=== PATIENT | male | born 1970 | race Caucasian/White ===

== ENCOUNTER 2020-05-21 16:41 | Inpatient (IN) | payer OTHER ==
[~2020-05-21] VITALS: Ht 190.5 cm; Wt 143.8 kg
[2020-05-21] MEDS ORDERED: ZESTORETIC 20-251 EA PO (17:21)
[2020-05-21 17:41] LABS: BASOPHILS ABSOLUTE AUTO 0.05 K/mm3 (0.00-0.23); BASOPHILS PERCENT AUTO 1 % (0-2); EOSINOPHILS ABSOLUTE AUTO 0.03 K/mm3 (0.00-0.68); EOSINOPHILS PERCENT AUTO 0 % (0-6); Hematocrit 49.1 % (37.0-53.0); Hemoglobin 15.9 g/dL (13.5-17.5); IMMATURE GRAN ABSOLUTE AUTO 0.01 K/mm3 (0.00-0.10); IMMATURE GRAN PERCENT AUTO 0 % (0-1); LYMPHOCYTES ABSOLUTE AUTO 2.61 K/mm3 (0.84-5.20); LYMPHOCYTES PERCENT AUTO 28 % (21-46); MONOCYTES ABSOLUTE AUTO 0.71 K/mm3 (0.16-1.47); MONOCYTES PERCENT AUTO 8 % (4-13); Mean Corpuscular HGB 28.9 pg (26.0-34.0); Mean Corpuscular HGB Conc 32.4 g/dL (31.5-36.5); Mean Corpuscular Volume 89 fL (80-100); NEUTROPHILS ABSOLUTE AUTO 6.07 K/mm3 (1.96-9.15); NEUTROPHILS PERCENT AUTO 64 % (41-73); Platelet Count 207 K/mm3 (150-400); RDW Standard Deviation 39.4 fL (35.1-46.3); White Blood Cell Count 9.48 K/mm3 (4.00-11.30)
[2020-05-21 17:45] LABS: Mean Platelet Volume 13.5 fL (9.1-12.4)
[2020-05-21] MEDS ORDERED: NIFE20 (17:53)
[2020-05-21 17:58] LABS: Beta-hydroxybutyrate 7.1 mg/dL (0.2-2.8)
[2020-05-21 18:05] LABS: Source, Urine Clean Catch
[2020-05-21 18:06] LABS: Bilirubin, Total 0.9 mg/dL (0.1-1.0); Bun/Creatinine Ratio 15.5 (12.0-20.0); Calcium, Blood 9.3 mg/dL (8.5-10.1); Creatinine, Blood 1.68 mg/dL (0.60-1.20); Globulin, Blood 3.9 g/dL (2.2-4.0); Potassium, Blood 6.8 mmol/L (3.5-5.5); Total Protein, Blood 7.9 g/dL (6.4-8.2)
[2020-05-21 18:08] LABS: Bilirubin, Urine Neg (Neg); Blood, Urine Neg (Neg); Glucose Qualitative, Urine 4+ (Neg); Ketones, Urine Neg (Neg); Leukocyte Esterase, Urine Neg (Neg); Nitrite, Urine Neg (Neg); Protein, Urine Neg (Neg); Specific Gravity, Urine 1.005 (1.003-1.022); Urobilinogen, Urine NORM (Normal)
[2020-05-21 18:12] LABS: Base Excess Venous 5.2 mmol/L; PCO2 Venous 62.6 mmHg (38-42); pH Blood Venous 7.31 (7.34-7.37)
[2020-05-21 18:16] LABS: Appearance, Urine Clear (Clear); Color, Urine Pale Yellow (P-Yellow)
[2020-05-21 18:24] LABS: Magnesium, Blood 2.8 mg/dL (1.6-2.4); Phosphorus, Blood 4.5 mg/dL (2.5-4.9)
[2020-05-21] MEDS ORDERED: NIFE30ER PO (18:52)
[2020-05-21 20:01] LABS: Glucose, Blood 889 mg/dL (70-99)
[2020-05-21 20:25] LABS: Albumin, Blood 3.8 g/dL (3.4-5.0); Anion Gap 10 mmol/L (6-16); Blood Urea Nitrogen 25 mg/dL (8-24); Bun/Creatinine Ratio 15.5 (12.0-20.0); CO2, Blood 27 mmol/L (21-32); Calcium, Blood 9.2 mg/dL (8.5-10.1); Chloride, Blood 89 mmol/L (98-108); Creatinine, Blood 1.61 mg/dL (0.60-1.20); Glomerular Filtration Rate 49 (60-); Glucose, Blood 845 mg/dL (70-99); Sodium, Blood 126 mmol/L (136-145)
[2020-05-21 20:29] LABS: Potassium, Blood 4.4 mmol/L (3.5-5.5)
[2020-05-21 22:14] LABS: Glucose, Blood 751 mg/dL (70-99)
[2020-05-22 01:52] LABS: Glucose, Blood 606 mg/dL (70-99)
[2020-05-22 04:06] LABS: BASOPHILS ABSOLUTE AUTO 0.05 K/mm3 (0.00-0.23); BASOPHILS PERCENT AUTO 1 % (0-2); EOSINOPHILS ABSOLUTE AUTO 0.17 K/mm3 (0.00-0.68); EOSINOPHILS PERCENT AUTO 2 % (0-6); Hematocrit 45.2 % (37.0-53.0); Hemoglobin 15.1 g/dL (13.5-17.5); IMMATURE GRAN ABSOLUTE AUTO 0.01 K/mm3 (0.00-0.10); IMMATURE GRAN PERCENT AUTO 0 % (0-1); LYMPHOCYTES ABSOLUTE AUTO 4.19 K/mm3 (0.84-5.20); LYMPHOCYTES PERCENT AUTO 46 % (21-46); MONOCYTES PERCENT AUTO 7 % (4-13); Mean Corpuscular HGB 29.4 pg (26.0-34.0); Mean Corpuscular HGB Conc 33.4 g/dL (31.5-36.5); Mean Corpuscular Volume 88 fL (80-100); Mean Platelet Volume 12.9 fL (9.1-12.4); NEUTROPHILS ABSOLUTE AUTO 4.06 K/mm3 (1.96-9.15); NEUTROPHILS PERCENT AUTO 45 % (41-73); Platelet Count 207 K/mm3 (150-400); RDW Coefficient Variation 11.9 % (11.7-14.2); RDW Standard Deviation 38.2 fL (35.1-46.3); Red Blood Cell Count 5.14 M/mm3 (4.30-5.90); White Blood Cell Count 9.08 K/mm3 (4.00-11.30)
[2020-05-22 04:23] LABS: Anion Gap 5 mmol/L (6-16); Blood Urea Nitrogen 21 mg/dL (8-24); Bun/Creatinine Ratio 16.8 (12.0-20.0); CO2, Blood 31 mmol/L (21-32); Calcium, Blood 8.9 mg/dL (8.5-10.1); Chloride, Blood 96 mmol/L (98-108); Creatinine, Blood 1.25 mg/dL (0.60-1.20); Glomerular Filtration Rate >60 (60-); Glucose, Blood 512 mg/dL (70-99); Potassium, Blood 4.3 mmol/L (3.5-5.5); Sodium, Blood 132 mmol/L (136-145)
--- NOTE | 2020-05-22 05:51 | NUR ---
SHIFT SUMMARY PT ADMITTED FROM ER. [facility]. CBG >700. ON FLUID BOLUS ON ADMIT AND JUST HAD RECEIVED 10U IV INSULIN. PT HAS SINCE RECEIVED 10SQ INSULIN Q4 HOURS WITH CONSISTENT DOWNWARD TRENDING OF BLOOD GLUCOSE LEVELS, WITH MOST RECENT BEING 512. PT DRININKING WATER TOLERATED. STATES BLURREY VISION HAS DECREASED BUT IS STILL PRESENT. PT IN SR WITH STABLE VS. WORE CPAP WHILE ASLEEPING FOR MAJORITY OF SHIFT. PT OTHERWISE INDEPENDENT IN ROOM. NPO EXCEPT WATER UNTIL CBG <300. WILL CONTINUE TO MONITOR UNTIUL SHIFT CHANGE.
--- NOTE | 2020-05-22 12:00 | NUR ---
PT STATUS CHANGED TO MEDICAL WITH NO TELE. REPORT GIVEN TO YANET MCGRAW. PT HAS BEEN ALERT AND ORIENTED, INDEPENDENT IN THE ROOM, VITALS HAS BEEN STABLE. LAST CBG WAS 396 PT REMAINS ON LOW SLIDING SCAL OF INSULIN, CBG CHECK SWITCHED TO AC/HS AND DIET RESUMED PER DR MARQUEZ. 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 PT STARTED ON METFORMIN AND GLIPIZIDE ORAL. PT DENIES ANY PAIN/PRESSURE. STILL HAS BLURRED VISION CAN ONLY SEE BLURRY FROM A FAR/CAN READ ATLEAST 1 FT AWAY, NO OTHER ISSUES ENCOUNTERED. PT WAS ACCOMPANIED BY PCT VIA WHEELCHAIR, ALL BELONGINGS SENT WITH PT.
--- NOTE | 2020-05-22 12:40 | NUR ---
PCU TRANSFER- PT ARRIVED TO ROOM 305 VIA W/C FROM PCU 11. PT A/OX4, INDEP UP IN ROOM. PT DENIES ANY COMPLAINTS AT THIS TIME. LS CLEAR, ON RA. BLOOD GLUCOSE 396, INSULIN GIVEN WELL GLIPIZIDE. PT NOTED TO HAVE DIARRHEA, GUAIAC SENT TO LAB PER ORDERS. PT ORIENTED TO ROOM AND CALL SYSTEM, CALL LIGHT IN REACH.
[2020-05-22 13:49] LABS: Stool Occult Blood Guaiac 1 Neg (Neg)
--- NOTE | 2020-05-22 15:12 | NUR ---
PERMISSION FOR CARE PT GAVE THIS STUDENT NURSE, ARABELLA MARTINEZ, PERMISSION TO ASSIST NURSE WITH CARE ON 05/23/2020
--- NOTE | 2020-05-22 17:06 | NUR ---
SHIFT SUMMARY- PT PCU TRANSFER THIS AFTERNOON. PT A/OX4, INDEP UP IN ROOM. PT DENIES ANY PAIN. LS CLEAR, ON RA. PT NOTED TO HAVE DIARRHEA, STOOL SENT, GUAIAC NEGATIVE. PT REPORTS CONTINUES TO HAVE DIFFICULTY WITH VISION. BLOOD GLUCOSE REMAINS IN THE HIGH 300'S TODAY. NO OTHER ACUTE CHANGES THIS SHIFT.
--- NOTE | 2020-05-22 17:33 | NUR ---
BLOOD GLUCOSE NOTED TO 409 AT DINNER, PER SLIDING SCALE THIS IS 10 UNITS RAJESH, SPOKE WITH DR MARQUEZ WHO HAS ORDERED AN ADDITIONAL 5 UNITS FOR A TOTAL OF 15 UNITS TO BE GIVEN.
--- NOTE | 2020-05-23 04:33 | NUR ---
SHIFT SUMMARY PT REMAINS HYPERGLYCEMIC, PT STATES THAT HE WOULD PREFER TO NOT HAVE TO TAKE INSULIN. CBG 412 AT HS, 10 UNITS NOVOLOG GIVEN. RECHECK 341. ENCOURAGED PT TO DRINK LOTS OF WATER. PT DIAPHORETIC THROUGHOUT THE NIGHT. PT STATES THAT HIS VISION HAS IMPROVED BUT IS STILL QUITE BLURRY. UNABLE TO READ ANYTHING ON THE WHITEBOARD OR SEE DETAILS OF STAFF IN THE ROOM. PT DENIES ANY N/T. HX OF DEJAH, REFUSED CPAP THIS EVENING. VITAL SIGNS STABLE. WILL CONTINUE TO MONITOR.
--- NOTE | 2020-05-23 08:14 | NUR ---
BLOOD GLUCOSE THIS AM OF 441, PER SLIDING SCALE THIS IS 10 UNTIS HUMALOG. ATTEMPTED TO BACK DR MARQUEZ, AWAITING CALL BACK. DR MARQUEZ NOTED TO INCREASE GLIPIZIDE THIS AM ER EMAR.
--- NOTE | 2020-05-23 08:19 | NUR ---
DR MARQUEZ IN TO SEE PT THIS AM, PER DR MARQUEZ WE WILL GIVE THE SCHEDULE 10 UNITS HUMALOG AND SCHEDULED ORAL MEDS ORDERED.
--- NOTE | 2020-05-23 17:54 | NUR ---
SHIFT SUMMARY- PT A/OX4, INDEP IN ROOM. BLOOD SUGARDS REMAIN IN THE 300'S TODAY, GLIPIZIDE AND METFORMIN INCREASED THIS EVENING. PT ABLE TO DEMONSTRATE GIVING SELF INSULIN THIS EVENING. PT HAS BEEN ADAMENT HE DOES NOT WANT INSULIN AT HOME BUT THEN REPORTS HE JUST DOES NOT WANT TO TAKE IT EVERY DAY. PT EDUCATED ON INSULIN, ORAL MEDICATIONS AND DIET. LS CLEAR, ON RA. PT DENIES ANY COMPLAINTS T/O THE DAY. PT STILL HAS POOR VISION BUT REPORTS ITS IMPROVING. PER DR MARQUEZ PLAN TO D/C HOME TOMORROW. PT NOTIFIED OF PLAN. NO OTHER ACUTE CHANGES THIS SHIFT.
--- NOTE | 2020-05-24 04:31 | NUR ---
SHIFT SUMMARY NO ACUTE CHANGES TO REPORT THIS SHIFT. PT HAS RESTED MOST OF THE NIGHT AND HAS DENIED NEEDS. BLOOD SUGARS REMAIN IN THE 300'S, COVERAGE PER SS. PT HAS BEEN INDEPENDENT IN THE ROOM, MAKES NEEDS KNOWN. ASSESSMENT REMAINS UNCHANGED. BED IN LOWEST POSITION, CALL LIGHT WITHIN REACH.
--- NOTE | 2020-05-24 17:04 | NUR ---
SHIFT SUMMARY PATIENT ALERT AND ORIENTED THROUGHOUT THIS SHIFT. PATIENT IS INDEPENDENT IN THE ROOM. PATIENTS BLOOD GLUCOSE OVER 400 THIS MORNING BEFORE LUNCH. PATIENT'S INSULIN AND GLUCOSE MEDICATIONS ADJUSTED BY . PATIENT TO REMAIN IN THE HOSPITAL TO ENSURE GLUCOSE LEVELS STABILIZE. PATIENT UP WALKING IN THE ROOM AND IN THE HALLWAY. PATIENT'S BROTHER IS CURRENTLY IN THE ROOM VISITING.
--- NOTE | 2020-05-25 05:59 | NUR ---
SHIFT SUMMARY PATIENT ALERT AND ORIENTED. HAD NO COMPLAINTS OF PAIN. STILL REPORTING BLURRED VISION. WAS ABLE TO SLEEP WELL OVERNIGHT. IV PATENT AND FLUSHED. BED IN LOWEST POSITION WITH WHEELS LOCKED. CALL LIGHT WITHIN REACH. REPORT GIVEN TO ONCOMING RN.
--- NOTE | 2020-05-25 18:30 | NUR ---
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 PT C/O BEING TIRED AND STATES HE DID NOT GET A GOOD NIGHTS SLEEP. IV LINE SL AND WNL. PT IS ALERT AND ORIENTED X4. STAFF WILL CONT. TO MONITOR.
--- NOTE | 2020-05-26 05:47 | NUR ---
05/25/20 2100 Patient is resting in the dark. Pt states his stomache was sour from something he ate. Pt was given pepcid IV as ordered. Pt Assessment was otherwise negative. Blood sugar 258. Insulin given as directed. Pt is quiet and hopes to sleep better tonight. He is alert and oriented. Up independantly in room. Will continue to monitor.
--- NOTE | 2020-05-26 05:52 | NUR ---
RN summary: Patient was able to sleep some until 0100 when he was up to the BR then unable to go back to sleep for a few hours. Pt was sleeping this am when awoken for vital signs. Pt frustrated to be woken up. Pt is otherwise stable with no other complaints. Possible DC on Wednesday when [facility]. Will continue to monitor.
--- NOTE | 2020-05-26 18:17 | NUR ---
PT WATCHING TV IN HIS ROOM AFTER PM MEDICATION AND DINNER. PT MAKES NO COMPLAINTS AT THIS TIME. IV FLUSHED, SL AND WNL. PT REMAINS ALERT AND ORIENTED X4 AND STATES "MY VISION IS GETTING BETTER."
--- NOTE | 2020-05-26 22:21 | NUR ---
2100 Pt is very pleasant, alert and oriented. Pt is up independantly in room. Denies pain. Blood sugars improving, 207 this evening. Insulin given as directed. Will continue to monitor, call light in reach.
--- NOTE | 2020-05-27 06:38 | NUR ---
Rn summary. Vital signs remain stable. Pt has rested on and off. Plan is for discharge today after getting [facility]. Call light in reach.
[2020-05-27] MEDS ORDERED: GLIP2.5ER PO (12:54)
[2020-05-27] MEDS ORDERED: FAMO20 PO (12:54)
[2020-05-27] MEDS ORDERED: METF500 PO (12:56)
[2020-05-27] MEDS ORDERED: INSULANPEN SC (12:56)
--- NOTE | 2020-05-27 16:26 | NUR ---
REVIEW D'C WITH PATIENT. IV D'C AND NO SWELLING OR BRUISING NOTED. AWARE TO [facility] AWARE TO MAKE FOLLOW UP APPOINTMENT WITH [facility] THIS RN COULD NOT MAKE APPOINTMENT ON HOLD X 2 WITHOUT GETTING THROUGH. AWARE CAN COME BACK TO E.R IF ANY PROBLEMS. ANSWER ALL QUESTIONS. IN [place] CAB TO [facility] THEN TO HOME.
== END 2020-05-27 16:17 | disposition home or self-care (01) | DRG 638 ==
LOC: ER 16:41 → PCU 16:42 → ERHOLD 16:42 → PCU 21:34 → MEDS 05-22 11:50 → ENPENDDIS 05-27 12:21 → MEDS 05-27 16:17
PROVIDERS: Emergency Medicine; Nurse Practitioner Acute Care; ADMIT Internal Medicine
DX: E11.65 Type 2 diabetes mellitus with hyperglycemia (principal); N17.9 Acute kidney failure, unspecified; K92.1 Melena; I10 Essential (primary) hypertension; G47.33 Obstructive sleep apnea (adult) (pediatric); E78.5 Hyperlipidemia, unspecified; E87.5 Hyperkalemia; E66.9 Obesity, unspecified; Z68.37 Body mass index [BMI] 37.0-37.9, adult
CPT/HCPCS: 36415; 80048; 80053; 80069; 81003; 82010; 82270; 82803; 82947; 83036; 83735; 84100; 85025; 93005; 93010; 94660; 96360; 96372; 96375; 96376; 99285-25; A9270; G0378; J0610; J1650; J1815; J7030